=== PATIENT | male | born 2000 | race Caucasian/White ===

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

== ENCOUNTER 2019-04-23 02:28 | Emergency (ER) | payer OTHER ==
[~2019-04-23] VITALS: Ht 177.8 cm; Wt 86.2 kg
[2019-04-23 02:55] VITALS: BP_SYST 124
[2019-04-23] MEDS ORDERED: ONDANSETRON HCL 4 MG/2 ML VIAL IVP ONE (03:30)
[2019-04-23] MEDS ORDERED: MORPHINE 2 MG/ML INJ. SYRINGE IVP ONE (03:30)
[2019-04-23] MEDS ORDERED: MORPHINE 4 MG/ML INJ. SYRINGE IVP ONE (03:30)
[2019-04-23] MEDS ORDERED: KETAMINE 30 MG/3 ML SYRINGE IVP ONE ×2 (03:30→04:15)
[2019-04-23] MEDS ORDERED: NACL 0.9% 1,000 ML IV ONE (03:45)
[2019-04-23] MEDS ORDERED: PROPOFOL 200MG/ 20ML VIAL (DIPRIVAN) IV ONE (04:15)
[2019-04-23] MEDS ORDERED: KETOROLAC TROMETHAMINE 30 MG VIAL IVP ONE (06:00)
[2019-04-23] MEDS ORDERED: KETOROLAC TROMETHAMINE 30 MG VIAL ONE (06:03)
[2019-04-23 08:23] VITALS: BP_SYST 135
== END 2019-04-23 08:30 | disposition home or self-care (01) ==
LOC: SED 02:28
DX: S93.402A Sprain of unspecified ligament of left ankle, initial encounter (principal); M24.411 Recurrent dislocation, right shoulder; Z88.1 Allergy status to other antibiotic agents; W17.89XA Other fall from one level to another, initial encounter; Y93.39 Activity, other involving climbing, rappelling and jumping off; Y92.89 Other specified places as the place of occurrence of the external cause; Y99.8 Other external cause status
CPT/HCPCS: 23650; 73030; 73610; 96374; 96375; 99152; 99153; 99285; J1885; J2270; J2405; J2704; J7030

== ENCOUNTER 2024-01-31 21:20 | Emergency (ER) | payer OTHER ==
[~2024-01-31] VITALS: Ht 177.8 cm; Wt 83.9 kg
[2024-01-31 21:30] VITALS: BP_SYST 141; PULSE 107; RESP 13; TEMP 96.6; O2SAT 98
[2024-01-31] MEDS ORDERED: ETOMIDATE 20 MG/ 10 ML VIAL (AMIDATE) IVP ONE (21:45)
[2024-01-31 22:13] VITALS: BP_SYST 143; PULSE 87; RESP 20; O2SAT 98
== END 2024-01-31 22:13 | disposition left against medical advice (07) ==
LOC: SED 21:20
DX: S43.015A Anterior dislocation of left humerus, initial encounter (principal); J45.909 Unspecified asthma, uncomplicated; Z88.1 Allergy status to other antibiotic agents; X58.XXXA Exposure to other specified factors, initial encounter; Y93.89 Activity, other specified; Y92.89 Other specified places as the place of occurrence of the external cause; Y99.8 Other external cause status
CPT/HCPCS: 99285; J3490